=== PATIENT | female | born 1990 | race Caucasian/White ===

== ENCOUNTER 2021-07-16 14:15 | Emergency (ER) | payer SELFPAY ==
[~2021-07-16] VITALS: Ht 165.1 cm; Wt 54.5 kg
[2021-07-16 14:32] VITALS: BP 111/72
[2021-07-16] MEDS ORDERED: ketorolac tromethamine 15mg/ml inj. IM ONE (14:40)
[2021-07-16] MEDS ORDERED: ketorolac trometh. 30mg/ml inj. IM ONE (15:00)
== END 2021-07-16 15:55 | disposition home or self-care (01) ==
LOC: ER 14:16 → EDBD 14:16 → ER 15:55
DX: S39.012A Strain of muscle, fascia and tendon of lower back, initial encounter (principal); G89.29 Other chronic pain; Z88.6 Allergy status to analgesic agent; X58.XXXA Exposure to other specified factors, initial encounter; Y93.89 Activity, other specified; Y92.89 Other specified places as the place of occurrence of the external cause; Y99.8 Other external cause status
CPT/HCPCS: 96372; 99283; J1885